=== PATIENT | female | born 1980 | race Caucasian/White ===

== ENCOUNTER → 2018-11-29 | Outpatient (CLI) | payer BC ==
[2018-11-29 17:30] LABS: BASO % 0.3 % (0.0-1.0); EOS # 0.1 10^3/uL (0.0-0.50); EOS % 0.7 % (0.0-3.0); HEMATOCRIT 40.6 % (36.0-47.0); HEMOGLOBIN 13.4 g/dl (12.0-15.5); LYMPH % 17.1 % (24.0-44.0); MEAN CORPUSCULAR HEMOGLOBIN 29.6 pg (27.0-33.0); MEAN CORPUSCULAR VOLUME 89.8 fl (80.0-96.0); MONO # 0.8 10^3/uL (0.0-0.8); MONO % 6.3 % (0.0-5.0); NEUTROPHILS % 75.2 % (36.0-66.0); PLATELET COUNT, AUTOMATED 199 10^3/uL (150-450); RED BLOOD COUNT 4.52 10^6/uL (4.00-5.40); WHITE BLOOD COUNT 11.9 10^3/uL (4.0-10.0)
[2018-11-29 18:52] LABS: CHLAMYDIA DNA AMPLIFICATION NEGATIVE (NEGATIVE); GC DNA AMPLIFICATION NEGATIVE (NEGATIVE)
[2018-11-29 20:28] LABS: HIV 1&2 SCREEN CENTAUR NEGATIVE (NEGATIVE); RUBELLA IgG QUALITATIVE IMMUNE (IMMUNE)
[2018-12-04 14:26] LABS: HEPATITIS C VIRUS ABY INDEX < 0.0 INDEX (<0.8)
== END ==
LOC: M LAB 15:59
PROVIDERS: ATTEND Specialist
DX: Z34.81 Encounter for supervision of other normal pregnancy, first trimester (principal)

== ENCOUNTER → 2018-12-17 | Outpatient (CLI) | payer BC | LOC: M SMT 11:58 | PROVIDERS: ATTEND Specialist | DX: O09.522 Supervision of elderly multigravida, second trimester (principal); Z3A.00 Weeks of gestation of pregnancy not specified ==

== ENCOUNTER → 2018-12-17 | Outpatient (REF) | payer BC | LOC: M LAB REF 17:01 | PROVIDERS: ATTEND Specialist | DX: Z34.81 Encounter for supervision of other normal pregnancy, first trimester (principal) ==

== ENCOUNTER → 2019-01-27 | Outpatient (CLI) | payer BC ==
--- NOTE | 2019-01-27 13:42 | REP ---
Clinical: Anatomical evaluation. Comparison: None . Findings: Examination demonstrates a single live intrauterine in breech presentation. motion is identified by technologist. Placenta is noted anterior and grade zero without evidence for placenta previa or abruption. Amniotic fluid volume is normal. Cervix measures 3.8 cm in length and appears closed. No evidence for nuchal cord. Gestational age by LMP 18 weeks 6 days with BOO 06/24/2019 Gestational age by current measurements 20 weeks 0 days with BOO 06/16/2019 . FHR equals 149 beats per minute. BPD 4.5 cm 19 weeks 3 days HC 16.6 cm 19 weeks 2 days AC 15.8 cm 20 weeks 6 days FL 3.0 cm 19 weeks 3 days HL 3.2 cm 20 weeks 4 days HC/AC ratio 1.05 Estimated weight 332 grams ( 95th percentile based on age by LMP ). Anatomical assessment demonstrates normal structures including cranium, choroid plexus, cavum, cerebellum/posterior fossa, nose/lips, lungs, diaphragm, stomach, cord insertion/three-vessel cord, kidneys/bladder, spine, and extremities. Impression: Single live intrauterine in breech presentation demonstrating appropriate interval growth. Limited evaluation of the facial profile and heart/ventricular outflow tracts. Remainder of the anatomical assessment is complete and normal. Electronically Signed by Alfredo Simeon MD 01/27/2019 01:33 P
== END ==
LOC: M RAD 12:36
PROVIDERS: ATTEND Advanced Practice Midwife
DX: O34.219 Maternal care for unspecified type scar from previous cesarean delivery (principal); Z3A.20 20 weeks gestation of pregnancy

== ENCOUNTER → 2019-02-24 | Outpatient (CLI) | payer BC ==
--- NOTE | 2019-02-24 17:26 | REP ---
OB ULTRASOUND: Real-time sonographic evaluation of the gravid uterus performed. There is a single living intrauterine gestation, estimated gestational age 22 weeks 6 days, EDC 06/24/2019. Today's measurements indicate appropriate growth. BPD 58 mm = 23 weeks 6 days, 76th percentile HC 212 mm = 23 weeks 2 days, 60th percentile AC 184 mm = 23 weeks 2 days, 57th percentile FL 41 mm = 23 weeks 3 days, 64th percentile HC/AC ratio 1.15, within normal range. Estimated weight 586 grams, 59th percentile. Cervix is closed and measures 3.9 cm in length. heart rate 147 beats per minute. SEEN/GROSSLY UNREMARKABLE Lateral ventricles yes Posterior fossa no Upper lip yes Four-chamber heart yes LVOT no RVOT yes Stomach yes Cord insertion yes Three vessel cord yes Kidneys yes Bladder yes Spine yes position: Vertex. Placenta: Anterior and grade 1 with no previa or abruption. Amniotic fluid: Within normal limits. Electronically Signed by Sarabjit Frye MD 02/25/2019 09:54 A
== END ==
LOC: M RAD 15:22
PROVIDERS: ATTEND Specialist
DX: O09.522 Supervision of elderly multigravida, second trimester (principal); Z3A.22 22 weeks gestation of pregnancy

== ENCOUNTER → 2019-03-28 | Outpatient (REF) | payer BC ==
[2019-03-28 14:16] LABS: HEMATOCRIT 38.7 % (36.0-47.0); HEMOGLOBIN 12.3 g/dl (12.0-15.5); MEAN CORPUSCULAR HEMOGLOBIN 29.6 pg (27.0-33.0); MEAN CORPUSCULAR HGB CONC 31.8 g/dl (32.0-36.5); MEAN CORPUSCULAR VOLUME 93.3 fl (80.0-96.0); PLATELET COUNT, AUTOMATED 218 10^3/uL (150-450); RED BLOOD COUNT 4.15 10^6/uL (4.00-5.40)
== END ==
LOC: M PLALAB 10:35
PROVIDERS: ATTEND Specialist
DX: Z34.82 Encounter for supervision of other normal pregnancy, second trimester (principal); Z3A.00 Weeks of gestation of pregnancy not specified

== ENCOUNTER → 2019-04-04 | Outpatient (CLI) | payer BC ==
--- NOTE | 2019-04-04 15:12 | REP ---
Obstetric sonography: History: Supervision of for anatomy. Findings: Scanning through the gravid uterus demonstrates a viable single intrauterine gestation in a cephalic lie. motion is observed and heart rate is recorded at 147 beats per minute. An anterior grade 1 placenta is seen. Amniotic fluid is subjectively normal. There is no evidence of previa or abruption. Closed cervical length viewed transabdominally is 2.5 cm. No extrauterine abnormalities observed. There has been appropriate interval growth. No abnormalities observed. spine and upper and lower extremities are less than optimally seen today due to position. Similarly, intracranial anatomy is less than optimally seen. These structures were identified previously. The following additional anatomic structures are identified today and felt to be unremarkable: cranium, face and profile, lungs, four-chamber heart with left and right ventricular outflow tract views, diaphragm, left-sided stomach, abdominal wall cord insertion, three-vessel umbilical cord, kidneys and bladder. Biometry chart: BPD 7.4 cm = 29 weeks 3 days HC 27.0 cm = 29 weeks 3 days AC 25.2 cm = 29 weeks 3 days FL 5.6 cm = 29 weeks 2 days HL 5.1 cm = 29 weeks 5 days HC/AC ratio normal 1.07. Cephalic index normal 0.76. Estimated weight 1384 grams/3 pounds 0 ounces/66th percentile for 28 weeks 3 days. ELLIE 12.4 cm. S/D ratio normal 2.90. Impression: Viable single intrauterine gestation at 29 weeks 3 days by today's composite sonographic criteria. Expected gestational age estimate based on prior sonography is 29 weeks 4 days. BOO by prior sonography June 16, 2019. In conjunction with the prior study, anatomic survey is felt to be complete. Electronically Signed by Anish Briseno MD 04/04/2019 03:58 P
== END ==
LOC: M RAD 13:28
PROVIDERS: ATTEND Specialist
DX: Z34.83 Encounter for supervision of other normal pregnancy, third trimester (principal); Z3A.28 28 weeks gestation of pregnancy

== ENCOUNTER → 2019-04-15 | Outpatient (CLI) | payer BC | LOC: M PLALAB 10:12 | PROVIDERS: ATTEND Specialist | DX: Z34.83 Encounter for supervision of other normal pregnancy, third trimester (principal); Z3A.00 Weeks of gestation of pregnancy not specified ==

== ENCOUNTER → 2019-04-16 | Outpatient (CLI) | payer BC | LOC: M LAB 09:18 | PROVIDERS: ATTEND Specialist | DX: Z34.83 Encounter for supervision of other normal pregnancy, third trimester (principal); Z3A.00 Weeks of gestation of pregnancy not specified ==

== ENCOUNTER → 2019-05-27 | Outpatient (REF) | payer BC ==
[~2019-05-27] MED LIST: COLLCAP PO; HM V5000 PO; MULT1TAB42 PO; RA M500C PO; RANI15TA PO; RANI1SYP PO; VITA500079 PO
== END ==
LOC: M WHC 10:38
PROVIDERS: ATTEND Specialist
DX: Z36.85 Encounter for antenatal screening for Streptococcus B (principal)

== ENCOUNTER 2019-06-10 05:42 | Inpatient (IN) | payer BC ==
[~2019-06-10] VITALS: Ht 160 cm; Wt 104.5 kg
[2019-06-10] MEDS ORDERED: LACTATED RINGER'S 1000 ML IV STA (06:12)
[2019-06-10] MEDS: ceFAZolin SOD 2 GM in IV 1 EA IV ONE (06:15)
[2019-06-10] MEDS ORDERED: BICITRA 30ML SOLN UDC PO ONE (06:15)
[2019-06-10 06:36] LABS: HEMATOCRIT 40.1 % (36.0-47.0); HEMOGLOBIN 13.5 g/dl (12.0-15.5); MEAN CORPUSCULAR HEMOGLOBIN 30.2 pg (27.0-33.0); MEAN CORPUSCULAR HGB CONC 33.7 g/dl (32.0-36.5); MEAN CORPUSCULAR VOLUME 89.7 fl (80.0-96.0); PLATELET COUNT, AUTOMATED 177 10^3/uL (150-450); RED BLOOD COUNT 4.47 10^6/uL (4.00-5.40); WHITE BLOOD COUNT 14.1 10^3/uL (4.0-10.0)
[2019-06-10] MEDS ORDERED: METOCLOPRAMIDE INJ 10MG/2ML VIAL (J2765) IV PRN (07:53)
[2019-06-10] MEDS ORDERED: ONDANSETRON 4MG/2ML VIAL (J2405) IV PRN ×2 (07:53→09:00)
[2019-06-10] MEDS ORDERED: NALBUPHINE HCL 10 MG/ML AMP (J2300) IV PRN (07:53)
[2019-06-10] MEDS ORDERED: diphenhydrAMINE INJ 50MG/ML VIAL (J1200) IV PRN (07:53)
[2019-06-10] MEDS ORDERED: NALOXONE INJ 0.4 MG/1 ML VIAL (J2310) IV PRN ×2 (07:53)
[2019-06-10] MEDS ORDERED: MORPHINE PRES-FREE INJ 10 MG/10 ML VIAL (J2274) As Ordered ONE (07:56)
[2019-06-10] MEDS ORDERED: ePHEDrine SULFATE 25 MG/5 ML(5MG/ML) SYRINGE As Ordered ONE (07:59)
[2019-06-10] MEDS ORDERED: ONDANSETRON 4MG/2ML VIAL (J2405) As Ordered ONE (08:04)
[2019-06-10] MEDS ORDERED: OXYTOCIN INJ 10 UNITS/ML VIAL (J2590) As Ordered ONE (08:04)
[2019-06-10] MEDS ORDERED: dexameTHASONE 4 MG/ML 1ML VIAL (J1100) As Ordered ONE (08:24)
[2019-06-10] MEDS ORDERED: METOCLOPRAMIDE INJ 10MG/2ML VIAL (J2765) As Ordered ONE (08:24)
[2019-06-10] MEDS ORDERED: MEPERIDINE 50 MG/ML 1ML VIAL (J2175) As Ordered ONE (08:37)
[2019-06-10] MEDS ORDERED: KETOROLAC 60 MG/2 ML VIAL (J1885) As Ordered ONE (08:42)
[2019-06-10] MEDS ORDERED: ONDANSETRON 4 MG TAB (S0181) PO PRN (09:00)
[2019-06-10] MEDS: FAMOTIDINE 20 MG TAB PO SCH ×2 (09:00→19:49)
[2019-06-10] MEDS: PRENATAL VITAMINS CHEWABLE TABLET PO SCH (09:00)
[2019-06-10] MEDS ORDERED: DOCUSATE SODIUM 100 MG CAP PO PRN (09:00)
[2019-06-10] MEDS ORDERED: PERCOCET 5MG/325MG TAB PO PRN (09:00)
[2019-06-10] MEDS ORDERED: OXYTOCIN 30 UNITS IN 0.9% NaCl 500ML IV BAG (J2590) As Ordered ONE (09:14)
[2019-06-10] MEDS: LR 1,000 ML IV SCH ×2 (09:24→19:50)
[2019-06-10] MEDS ORDERED: OXYTOCIN DRIP 30 UNITS in IV 1 EA IV SCH (10:00)
[2019-06-10] MEDS ORDERED: MEASLES,MUMPS,RUBELLA VACCINE INJ (MMR-II) (90707) SC SCH (10:00)
[2019-06-10] MEDS ORDERED: RHOGAM 300 MCG (1500 IU) INJ (J2790) IM SCH (10:00)
[2019-06-10 10:30] VITALS: BP 131/77
[2019-06-10 10:45] VITALS: BP 143/70
[2019-06-10 11:45] VITALS: BP 131/69
[2019-06-10 12:45] VITALS: BP 138/85
[2019-06-10] MEDS: KETOROLAC 30 MG/ML VIAL (J1885) IV SCH ×2 (14:15→19:49)
[2019-06-10 18:00] VITALS: BP 144/67
--- NOTE | 2019-06-10 21:16 | RO ---
DATE OF PROCEDURE: 06/10/2019 PREPROCEDURE DIAGNOSIS: Prior section times four, 38 weeks, prior severe adhesive disease. POSTPROCEDURE DIAGNOSIS: Prior section times four, 38 weeks, prior severe adhesive disease. PROCEDURE: Repeat low transverse section. SURGEON: Martinez Delgadillo MD CELL TUBER MACHINE: Shirley Royal CNM ANESTHESIA: Spinal. ESTIMATED BLOOD LOSS: 500 mL. URINE OUTPUT: 250 mL. FINDINGS: 3170 gram, 7 pound male . scores 9 and 9. Moderate adhesions of bladder to the uterus, omental adhesions to the midline anterior abdominal wall. DESCRIPTION OF PROCEDURE: The patient was taken to the operating room where spinal anesthesia was induced. She was prepped and draped in a sterile fashion in the supine position. A Teague catheter was placed. A Pfannenstiel skin incision was made with a scalpel and carried through to the fascia. The fascia was nicked and extended. The fascia was dissected off the rectus muscles. Peritoneal cavity was entered. The bladder was dissected off the uterus with a combination of blunt and sharp dissection. A Mobius retractor was placed. A curvilinear incision was made in the lower uterine segment until clear fluid was noted. This was extended manually. The infant was delivered from the vertex position without difficulty. The cord was doubly clamped and cut. The infant was handed off to awaiting nurses. The placenta was expressed. The uterus was closed with #0 Vicryl in a running locked fashion. A second imbricating layer of #0 Vicryl was placed. Mobius retractor was removed. Peritoneum was closed with #2-0 Vicryl in a running fashion. The fascia was closed with #0 Vicryl in a running fashion. The deep layer was irrigated and closed with #2-0 chromic. The skin was closed with #4-0 Monocryl subcuticular sutures. Sponge, instrument, and needle counts were correct. Shirley Royal CNM assisted for the entire procedure. She was indispensable to the successful performance of the procedure. She helped create all layers of the incision. She helped deliver the baby and close all layers.
[2019-06-10 22:00] VITALS: BP 121/70
[2019-06-11] MEDS: KETOROLAC 30 MG/ML VIAL (J1885) IV SCH (01:14)
[2019-06-11] MEDS ORDERED: CALCIUM CARBONATE 500 MG CHEW U/D PO PRN (01:15)
[2019-06-11 06:00] VITALS: BP 119/76
[2019-06-11] MEDS ORDERED: OXYC1TAB23 PO (06:02)
[2019-06-11] MEDS ORDERED: IBUP80TA PO (06:02)
[2019-06-11 06:45] LABS: HEMATOCRIT 32.8 % (36.0-47.0); MEAN CORPUSCULAR HEMOGLOBIN 30.7 pg (27.0-33.0); MEAN CORPUSCULAR HGB CONC 33.5 g/dl (32.0-36.5); MEAN CORPUSCULAR VOLUME 91.6 fl (80.0-96.0); PLATELET COUNT, AUTOMATED 153 10^3/uL (150-450); RED BLOOD COUNT 3.58 10^6/uL (4.00-5.40)
[2019-06-11] MEDS: FAMOTIDINE 20 MG TAB PO SCH ×2 (08:38→20:50)
[2019-06-11] MEDS: PRENATAL VITAMINS CHEWABLE TABLET PO SCH (08:38)
[2019-06-11 10:00] VITALS: BP 131/65
[2019-06-11] MEDS: IBUPROFEN 800 MG TAB PO SCH ×2 (10:02→18:00)
[2019-06-11 14:00] VITALS: BP 131/67
[2019-06-11 18:00] VITALS: BP 136/68
[2019-06-11 22:06] VITALS: BP 122/59
[2019-06-12] MEDS: IBUPROFEN 800 MG TAB PO SCH ×2 (02:12→09:22)
[2019-06-12 02:21] VITALS: BP 133/65
[2019-06-12] MEDS: PERCOCET 5MG/325MG TAB PO PRN ×2 (06:12→11:42)
[2019-06-12 06:32] VITALS: BP 129/73
--- NOTE | 2019-06-12 07:45 | DSES ---
DATE OF ADMISSION: 06/10/2019 DATE OF DISCHARGE: 06/12/2019 DISCHARGE DIAGNOSIS: Repeat section times four, stable condition, postoperative day two. SURGEON: Dr. Martinez Delgadillo BIOMEDICAL SCIENTIST: Shirley Trejo HISTORY: Stevan is a 38-year-old, 4, para 4-0-0-4 now, who underwent a repeat section, planned elective. Her surgery was uncomplicated. She did deliver a 7 pound male weighing 3170 grams, 9 and 9. There were numerous adhesions that were taken down during surgery. OBJECTIVE: Temperature 97.6, pulse 91, respirations 18, BP is 129/73. She is alert and oriented x3 this morning. Her pain has been well managed with by mouth pain medications. She has been out of bed for self care, kristie care and infant care. She is voiding without difficulty and passing flatus. Preoperative CBC: Hemoglobin 13.5, hematocrit 40.1, platelet 177. Postoperative CBC on 06/12/2019, hemoglobin 11.0, hematocrit 32.3, platelet 153. PLAN: Discharge the patient home today. Pain medications have been E-prescribed by Dr. Martinez Delgadillo. She is to follow up at [facility] for a 2-week incision check and an 8-week visit with Dr. Delgadillo. I did review discharge structures that include breast care, incision care, kristie care, pelvic rest, activity and lifting restrictions, danger signs to report, as well as access to care. The patient and her partner have had their questions answered and request discharge home today. edited: 06/13/2019 0713 [id number] [id number]
[2019-06-12] MEDS: FAMOTIDINE 20 MG TAB PO SCH (09:21)
[2019-06-12] MEDS: PRENATAL VITAMINS CHEWABLE TABLET PO SCH (09:21)
== END 2019-06-12 12:00 | disposition home or self-care (01) | DRG 540 ==
LOC: M LDI 05:42 → M OBS 10:14
PROVIDERS: ADMIT Specialist; ATTEND Specialist
PROC: 10D00Z1 Extraction of Products of Conception, Low, Open Approach (ICD-10-PCS; principal; 2019-06-10 07:30)
DX: O34.211 Maternal care for low transverse scar from previous cesarean delivery (principal); Z37.0 Single live birth; Z3A.38 38 weeks gestation of pregnancy; O09.523 Supervision of elderly multigravida, third trimester

== ENCOUNTER → 2020-10-26 | Outpatient (REF) | payer BC ==
[~2020-10-26] MED LIST changes: +IBUP80TA PO; +OXYC1TAB23 PO
== END ==
LOC: M SFHCCLAY 08:09
PROVIDERS: ATTEND Family Medicine
DX: Z78.9 Other specified health status (principal); Z11.1 Encounter for screening for respiratory tuberculosis

== ENCOUNTER → 2021-03-04 | Outpatient (REF) | payer OTHER ==
[2021-03-04 15:51] LABS: BASO # 0.1 10^3/uL (0.0-0.2); BASO % 0.6 % (0.0-1.0); EOS # 0.1 10^3/uL (0.0-0.5); EOS % 1.4 % (0.0-3.0); HEMOGLOBIN 13.8 g/dl (12.0-15.5); LYMPH % 31.2 % (24.0-44.0); MEAN CORPUSCULAR HEMOGLOBIN 29.4 pg (27.0-33.0); MEAN CORPUSCULAR HGB CONC 32.1 g/dl (32.0-36.5); MEAN CORPUSCULAR VOLUME 91.5 fl (80.0-96.0); MONO % 10.6 % (2.0-8.0); NEUTROPHILS # 5.3 10^3/uL (1.5-8.5); NEUTROPHILS % 55.8 % (36.0-66.0); PLATELET COUNT, AUTOMATED 220 10^3/uL (150-450); WHITE BLOOD COUNT 9.5 10^3/uL (4.0-10.0)
[2021-03-04 16:24] LABS: RHEUMATOID FACTOR QUANT < 10.0 IU/ML (<15.0)
[2021-03-04 17:30] LABS: ERYTHROCYTE SEDIMENTATION RATE 7 mm/hr (0-20)
[2021-03-07 23:07] LABS: ANA (HEP2) Negative (.); CYCLIC CITRULLINATED PEPTIDE 5 units (0-19)
== END ==
LOC: M SFHCCLAY 11:47
PROVIDERS: ATTEND Physician Assistant
DX: R21 Rash and other nonspecific skin eruption (principal); M25.50 Pain in unspecified joint
CPT/HCPCS: 85025; 85652; 86038; 86140; 86200; 86431; G0463

== ENCOUNTER → 2021-06-29 | Outpatient (REF) | payer OTHER ==
[2021-06-29 16:33] LABS: BILIRUBIN,DIRECT 0.1 MG/DL (0.0-0.2); BILIRUBIN,TOTAL 0.6 MG/DL (0.2-1.0); TOTAL PROTEIN 7.6 GM/DL (6.4-8.2)
== END ==
LOC: M SFHCCLAY 10:16
PROVIDERS: ATTEND Family Medicine
DX: R10.11 Right upper quadrant pain (principal)
CPT/HCPCS: 80076; G0463

== ENCOUNTER → 2021-09-07 | Outpatient (CLI) | payer OTHER | LOC: M RAD 06:59 | PROVIDERS: ATTEND Family Medicine | DX: R10.11 Right upper quadrant pain (principal) ==

== ENCOUNTER → 2022-04-11 | Outpatient (REF) | payer OTHER ==
[2022-04-11 17:53] LABS: THYROID STIMULATING HORMONE 1.124 uIU/ML (0.55-4.78)
[2022-04-11 20:36] LABS: ALBUMIN 4.1 G/DL (3.2-5.2); ALKALINE PHOSPHATASE 50 U/L (46-116); ALT/SGPT 28 U/L (7.0-40); AST/SGOT 20 U/L (<34); BILIRUBIN,TOTAL 0.3 MG/DL (0.3-1.2); BLOOD UREA NITROGEN 14 MG/DL (9-23); CARBON DIOXIDE LEVEL 28 MMOL/L (20-31); CHLORIDE LEVEL 105 MMOL/L (98-107); CHOLESTEROL LEVEL 164 MG/DL (<200); CHOLESTEROL RISK RATIO 3.95 (<5); CREATININE FOR GFR 0.86 MG/DL (0.55-1.30); GLOMERULAR FILTRATION RATE > 60.0 (>60); GLUCOSE, FASTING 77 MG/DL (60-100); HDL CHOLESTEROL 41.5 MG/DL (>40); LDL CHOLESTEROL 96.1 MG/DL (<100); NON-HDL-C 123 MG/DL; POTASSIUM SERUM 4.6 MMOL/L (3.5-5.1); SODIUM LEVEL 140 MMOL/L (136-145); TOTAL PROTEIN 7.3 G/DL (5.7-8.2); TRIGLYCERIDES LEVEL 132 MG/DL (<150)
[2022-04-11 20:41] LABS: FREE T4 0.92 NG/DL (0.89-1.76)
== END ==
LOC: M SFHCCLAY 10:07
PROVIDERS: ATTEND Nurse Practitioner Family
DX: F33.1 Major depressive disorder, recurrent, moderate (principal); E55.9 Vitamin D deficiency, unspecified; Z13.220 Encounter for screening for lipoid disorders; G43.009 Migraine without aura, not intractable, without status migrainosus

== ENCOUNTER → 2022-12-21 | Outpatient (REF) | payer BC ==
[2022-12-21 18:56] LABS: BASO # 0.1 10^3/uL (0.0-0.2); BASO % 0.8 % (0.0-1.0); EOS # 0.1 10^3/uL (0.0-0.5); EOS % 1.3 % (0.0-3.0); HEMATOCRIT 38.8 % (36.0-47.0); HEMOGLOBIN 12.1 g/dl (12.0-15.5); LYMPH # 2.1 10^3/uL (1.5-5.0); LYMPH % 27.9 % (24.0-44.0); MEAN CORPUSCULAR HEMOGLOBIN 26.2 pg (27.0-33.0); MEAN CORPUSCULAR HGB CONC 31.2 g/dl (32.0-36.5); MEAN CORPUSCULAR VOLUME 84.2 fl (80.0-96.0); MONO # 0.7 10^3/uL (0.0-0.8); MONO % 9.2 % (2.0-8.0); NEUTROPHILS # 4.5 10^3/uL (1.5-8.5); NEUTROPHILS % 60.5 % (36.0-66.0); PLATELET COUNT, AUTOMATED 260 10^3/uL (150-450); RED BLOOD COUNT 4.61 10^6/uL (4.00-5.40); WHITE BLOOD COUNT 7.5 10^3/uL (4.0-10.0)
[2022-12-21 19:11] LABS: BLOOD UREA NITROGEN 12 MG/DL (9-23); CARBON DIOXIDE LEVEL 24 MMOL/L (20-31); CHLORIDE LEVEL 107 MMOL/L (98-107); CREATININE FOR GFR 0.86 MG/DL (0.55-1.30); FREE T4 0.91 NG/DL (0.89-1.76); GLOMERULAR FILTRATION RATE > 60.0 (>58); GLUCOSE, FASTING 63 MG/DL (60-100); POTASSIUM SERUM 4.1 MMOL/L (3.5-5.1); SODIUM LEVEL 140 MMOL/L (136-145)
== END ==
LOC: M SFHCCLAY 14:21
PROVIDERS: ATTEND Nurse Practitioner Family
DX: R00.2 Palpitations (principal)

== ENCOUNTER → 2023-06-22 | Outpatient (CLI) | payer BC | LOC: M SLEEP HO 06:21 | PROVIDERS: ATTEND Nurse Practitioner Family | DX: G47.30 Sleep apnea, unspecified (principal) ==

== ENCOUNTER → 2024-04-30 | Outpatient (REF) | payer OTHER ==
[2024-04-30 18:08] LABS: BASO # 0.1 10^3/uL (0.0-0.2); BASO % 0.6 % (0.0-1.0); EOS # 0.1 10^3/uL (0.0-0.5); EOS % 1.5 % (0.0-3.0); HEMATOCRIT 39.7 % (36.0-47.0); HEMOGLOBIN 12.1 g/dl (12.0-15.5); LYMPH # 2.3 10^3/uL (1.5-5.0); LYMPH % 25.8 % (24.0-44.0); MEAN CORPUSCULAR HEMOGLOBIN 24.8 pg (27.0-33.0); MEAN CORPUSCULAR HGB CONC 30.5 g/dl (32.0-36.5); MEAN CORPUSCULAR VOLUME 81.4 fl (80.0-96.0); MONO # 0.9 10^3/uL (0.0-0.8); MONO % 10.1 % (2.0-8.0); NEUTROPHILS # 5.4 10^3/uL (1.5-8.5); NEUTROPHILS % 61.7 % (36.0-66.0); PLATELET COUNT, AUTOMATED 280 10^3/uL (150-450); RED BLOOD COUNT 4.88 10^6/uL (4.00-5.40); WHITE BLOOD COUNT 8.7 10^3/uL (4.0-10.0)
[2024-04-30 18:11] LABS: ALBUMIN 3.7 G/DL (3.2-5.2); ALKALINE PHOSPHATASE 68 U/L (35-104); ALT/SGPT 25 U/L (7.0-40); AST/SGOT 16 U/L (<34); BILIRUBIN,TOTAL 0.3 MG/DL (0.3-1.2); BLOOD UREA NITROGEN 14 MG/DL (9-23); CALCIUM LEVEL 8.5 MG/DL (8.5-10.1); CARBON DIOXIDE LEVEL 27 MMOL/L (20-31); CHLORIDE LEVEL 104 MMOL/L (98-107); CHOLESTEROL LEVEL 200 MG/DL (<200); CHOLESTEROL RISK RATIO 4.29 (<5); CREATININE FOR GFR 0.77 MG/DL (0.55-1.30); GLOMERULAR FILTRATION RATE > 60.0 (>58); GLUCOSE, FASTING 71 MG/DL (60-100); HDL CHOLESTEROL 46.6 MG/DL (>40); NON-HDL-C 153.4 MG/DL; POTASSIUM SERUM 4.3 MMOL/L (3.5-5.1); SODIUM LEVEL 142 MMOL/L (136-145); TOTAL PROTEIN 7.4 G/DL (5.7-8.2); TRIGLYCERIDES LEVEL 227 MG/DL (<150)
[2024-04-30 18:12] LABS: FREE T4 1.06 NG/DL (0.89-1.76); THYROID STIMULATING HORMONE 1.201 uIU/ML (0.55-4.78)
[2024-04-30 18:32] LABS: HEMOGLOBIN A1c 5.4 % (4.0-6.0)
== END ==
LOC: M SFHCCLAY 11:29
PROVIDERS: ATTEND Nurse Practitioner Family
DX: R00.2 Palpitations (principal); F33.1 Major depressive disorder, recurrent, moderate; G47.33 Obstructive sleep apnea (adult) (pediatric); R63.5 Abnormal weight gain